=== PATIENT | female | born 1955 | race Caucasian/White ===

== ENCOUNTER → 2018-12-04 | Outpatient (CLI) | payer OTHER ==
[~2018-12-04] MED LIST: ASPIRIN325 PO; FISH OIL 1,001000 M2 PO; LEVOTHYROXIN0.025 MG; NP THYROID30 MG PO; PROMETHAZINE/C118 ML PO; TOPROL XL50 MG PO; TYLENOL325 MG PO; VITAMIN B COMP1 EAC7 PO
== END ==
LOC: NUC 10:50
DX: Z13.820 Encounter for screening for osteoporosis (principal); Z78.0 Asymptomatic menopausal state

== ENCOUNTER → 2020-12-16 | Outpatient (CLI) | payer OTHER | LOC: BC 09:24 | PROVIDERS: ATTEND Family Medicine | DX: Z12.31 Encounter for screening mammogram for malignant neoplasm of breast (principal) ==